=== PATIENT | female | born 1975 ===

== ENCOUNTER 2025-05-23 22:29 | Emergency (ER) | payer OTHER ==
[~2025-05-23] VITALS: Ht 172.7 cm; Wt 86.2 kg
[2025-05-23 23:23] VITALS: BP 119/76; O2SAT 100
[2025-05-24] MEDS ORDERED: ACETAMINOPHEN 500 MG GEL..CAP PO STA (01:27)
[2025-05-24 02:09] LABS: BASO % 0.4 % (0.1-1.2); EOS # 0.08 (0.04-0.54); EOS % 1.2 % (0.7-7.0); LYMPH # 1.66 (1.18-3.74); LYMPH % 24.0 % (19.3-53.1); MEAN PLATELET VOLUME 9.80 fl (9.4-12.4); MONO # 0.64 (0.24-0.82); MONO % 9.2 % (4.7-12.5); NEUT # 4.51 (1.56-6.13); NEUT % 65.1 % (34.0-71.1); RED CELL DISTRIBUTION WIDTH 19.1 % (11.6-14.4)
[2025-05-24 03:17] LABS: COVID-19 AG NEGATIVE (NEGATIVE)
[2025-05-24] MEDS ORDERED: PHENAGIL TABLE1 EACH PO (04:23)
[2025-05-24] MEDS ORDERED: DOLOGESIC-DF 51 EACH PO (04:23)
[2025-05-24] MEDS ORDERED: FLONASE16 GM NASAL (04:28)
== END 2025-05-24 04:53 | disposition home or self-care (01) ==
LOC: ER 22:29
PROVIDERS: General Practice
DX: J06.9 Acute upper respiratory infection, unspecified (principal); R50.9 Fever, unspecified; Z91.013 Allergy to seafood; Z91.018 Allergy to other foods; Z88.6 Allergy status to analgesic agent; Z88.1 Allergy status to other antibiotic agents; D64.89 Other specified anemias; Z20.822 Contact with and (suspected) exposure to COVID-19